=== PATIENT | male | born 2000 | race Asian ===

== ENCOUNTER 2023-03-28 13:29 | Outpatient (CLI) | payer OTHER, SELFPAY ==
--- NOTE | 2023-03-28 13:30 | CRLHL7_ITS ---
For Patients: As a result of the Cures Act, medical imaging exams and procedure reports are released immediately into your electronic medical record. You may view this report before your referring provider. If you have questions, please contact your health care provider. INDICATION: Cough. COMPARISON: None. TECHNIQUE: PA and lateral views. FINDINGS: The cardiomediastinal silhouette and pulmonary vasculature are within normal limits. The lungs are clear. No pleural effusion or pneumothorax is identified. No acute bone or joint abnormality is seen. IMPRESSION: No acute abnormality. Dictated by Albert Rubi MD @ 03/29/2023 7:30:47 AM (Electronically Signed)
== END 2023-03-28 13:30 | disposition home or self-care (01) ==
PROVIDERS: Visit Provider Registered Nurse
DX: R05.1 Acute cough (principal)
CPT/HCPCS: 71046